=== PATIENT | female | born 1995 | race African-American/Black ===

== ENCOUNTER 2020-06-11 03:53 | Inpatient (IN) | payer OTHER ==
[2020-06-11 04:25] VITALS: BMI 38.5
[2020-06-11] MEDS ORDERED: NS / Oxytocin 40 units/1000ml 1,000 ML IV PRN (04:56)
[2020-06-11] MEDS ORDERED: Lidocaine 1% (PF) 30 ML VIAL SC PRN (04:56)
[2020-06-11] MEDS ORDERED: hydrALAZINE 20 MG/ML VIAL SLOW IVP PRN (04:56)
[2020-06-11] MEDS ORDERED: HYDROcodone/Acetaminophen 5/325 mg Tablet PO PRN (04:56)
[2020-06-11] MEDS ORDERED: Butorphanol Tartrate 1 MG/ML VIAL SLOW IVP PRN (04:56)
[2020-06-11] MEDS ORDERED: Ondansetron PF 4 MG/2 ML Vial IVP PRN ×2 (04:56→21:31)
[2020-06-11] MEDS ORDERED: Ibuprofen 800 MG TAB PO PRN (04:56)
[2020-06-11] MEDS ORDERED: Lactated Ringer's 1,000 ML IV SCH (05:00)
[2020-06-11 06:34] LABS: HBSAg Index 0.17 S/CO (0-0.99); Hep B Surf Ag Non-Reactive S/CO (NonReactive); Syphilis Antibody Nonreactive (Nonreactive); Syphilis Antibody Index 0.06 S/CO (<1.00 Non-Reactive)
[2020-06-11 06:47] LABS: Hemoglobin 11.3 g/dL (12.0-16.0); Mean Corpuscular HGB CONC 33.7 g/dL (32.0-36.0); Mean Corpuscular Hemoglobin 28.3 pg (27.0-31.0); Mean Platelet Volume 8.9 fL (7.4-10.4); Platelet Count 167 thou/uL (130-400); RBC Distribution Width 12.1 % (11.5-14.5); Red Blood Cell (RBC) Count 3.99 mill/uL (4.20-5.40); White Blood Cell (WBC) Count 7.8 thou/uL (4.8-10.8)
[2020-06-11] MEDS ORDERED: Bupivacaine 0.25% HCL 30 ML VIAL ONE (08:52)
--- NOTE | 2020-06-11 10:36 | PDOC.LDHP ---
Labor and Delivery H&P Chief complaint: loss of fluid HPI: 24yo at 38w2d by LMP here for LOF at 0330 this am, clear fluids, painful ctx q 6min Current gestational age (weeks): 38 Due date: 06/23/20 Dating criteria: last menstrual period Grav: 1 Para: 0 Current complications: none Abnormal US findings: No Current medications: pre- vitamins Previous surgical history: none Allergies/Adverse Reactions: Allergies Allergy/AdvReac Type Severity Reaction Status Date / Time No Known Allergies Allergy Verified 06/11/20 04:19 Social history: none - Physical Exam Vital signs reviewed and normal: yes General: NAD Heart: RRR Lungs: CTAB Abdomen: gravid Extremeties: no edema FHT: category 1 - Vaginal Exam cm dilated: 2 Effacement: 50% Station: -2 - OB Labs Blood type: O RH: positive Antibody Screen: negative HIV: negative RPR: negative HEPSAg: negative 1 hour GCT: positive 3 hour GTT: neg 3hr GTT GBS: negative Urine drug screen: negative Rubella: immune - Assessment L&D Assessment: term rupture in membranes - Plan Plan: admit to L&D, labor augmentation if indicated, informed consent obtained -: pt desires low intervention, disc if no significant progress within 12h of ROM will do ripening and or augmentation. Pt agrees.
--- NOTE | 2020-06-11 15:37 | PDOC.LDPN ---
Labor & Delivery Progress Note - Subjective Subjective: painful contractions - Objective Vital signs reviewed and normal: yes General: NAD, breathing through contractions Uterine fundus: non tender Dilation: 3 Effacement: 90% Station: -2 FHT: category 1 [place] contractions every: 3-6min Plan: pitocin for augmentation
[2020-06-11] MEDS ORDERED: NS w/ Oxytocin 10 units 500 ML ONE (15:39)
[2020-06-11] MEDS ORDERED: NS w/ Oxytocin 10 units 500 ML IV SCH (15:45)
[2020-06-11 16:15] LABS: SARS-CoV-2 MS2 Positive; SARS-CoV-2 N Gene Negative; SARS-CoV-2 S Gene Negative; SARS-CoV-2 by NAA Not Detected (NotDetected); SARS-CoV-2 orf1ab Negative
[2020-06-11] MEDS ORDERED: Fentanyl 4 mcg/Bup 0.1% Cadd 100 ML ONE (20:53)
[2020-06-11] MEDS ORDERED: EPHEDRINE 25 MG/5 ML SYRINGE SLOW IVP PRN (21:31)
[2020-06-11] MEDS ORDERED: Lactated Ringer's 500 ML IV PRN (21:31)
[2020-06-11] MEDS ORDERED: Promethazine HCl 25 MG/ML VIAL IM PRN (21:31)
[2020-06-11] MEDS ORDERED: Naloxone HCl 0.4 mg/ml Vial IVP PRN ×2 (21:31)
[2020-06-11] MEDS ORDERED: diphenhydrAMINE 50 MG/ML VIAL IVP PRN (21:31)
[2020-06-11] MEDS ORDERED: Acetaminophen 325 MG TAB PO PRN (21:31)
[2020-06-11] MEDS: Lactated Ringer's 1,000 ML IV SCH ×2 (21:38→23:16)
[2020-06-11] MEDS ORDERED: Fentanyl 4 mcg/Bupivacaine 0.1% Cassette 100 ML EPIDURAL SCH (21:45)
[2020-06-11] MEDS ORDERED: Communication Order-Pharmacy FS SCH (21:45)
[2020-06-12] MEDS ORDERED: Fentanyl 4 mcg/Bup 0.1% Cadd 100 ML ONE (03:02)
[2020-06-12] MEDS: Lactated Ringer's 1,000 ML IV SCH (06:11)
[2020-06-12] MEDS ORDERED: Famotidine/PF 20 mg/2ml Vial ONE (06:54)
[2020-06-12] MEDS ORDERED: Oxytocin 10 UNITS/ML VIAL ONE ×2 (07:03→07:59)
[2020-06-12] MEDS ORDERED: Azithromycin 500 MG VIAL ONE (07:03)
--- NOTE | 2020-06-12 07:18 | PDOC.LDPN ---
Labor & Delivery Progress Note - Subjective Subjective: painful contractions (epidural not working) - Objective Vital signs reviewed and normal: yes General: NAD Uterine fundus: non tender Dilation: 5 Effacement: 90% Station: -2 FHT: category 1 [place] contractions every: 6min -: Patient has been ruptured over 24hr, has not progressed into active labor despite adequate uterine contractions. Dispo for primary CS due to arrest of dilation at 5cm. Pt desires to proceed. All questions answered.
--- NOTE | 2020-06-12 07:22 | PDOC.OPDEL ---
OB Operative/Delivery Note Delivery Dr/Surgeon: Camila Assist: Keanu, PGY3 Pre-Delivery Diagnosis: arrest of dilation Procedure/Post Delivery Dx: primary low transverse CS Weeks gestation: 38 Anesthesia: spinal - Additional Findings/Plan Placenta delivered: spontaneous findings: low transverse hysterotomy without extension, normal uterus, normal tubes, normal ovaries Post delivery plan: routine recovery
[2020-06-12] MEDS ORDERED: Azithromycin 500 MG in Sodium Chloride 0.9% 250 ML 250 ML IVPB SCH (07:30)
[2020-06-12] MEDS ORDERED: CEFAZOLIN 2 GM in Premix Bag 1 BAG IVPB SCH (07:30)
[2020-06-12] MEDS ORDERED: Bicitra 30 ML UDCUP PO SCH (07:30)
[2020-06-12] MEDS ORDERED: Promethazine HCl 25 MG SUPP PR PRN (08:18)
[2020-06-12] MEDS ORDERED: L&D-Morphine 4 MG/ML VIAL SLOW IVP PRN (08:18)
[2020-06-12] MEDS ORDERED: Promethazine HCl 25 MG/ML VIAL IM PRN ×2 (08:18→10:21)
[2020-06-12] MEDS ORDERED: Ondansetron HCl/PF 4 MG/2 ML Vial IVP PRN (08:18)
[2020-06-12] MEDS ORDERED: Naloxone HCl 0.4 mg/ml Vial IV PRN (08:18)
[2020-06-12] MEDS ORDERED: Naloxone HCl 0.4 mg/ml Vial IVP PRN ×2 (08:18)
[2020-06-12] MEDS ORDERED: Meperidine HCl/PF 25 MG/ML VIAL SLOW IVP PRN (08:18)
[2020-06-12] MEDS ORDERED: diphenhydrAMINE 50 MG/ML VIAL IVP PRN (08:18)
[2020-06-12] MEDS ORDERED: Ondansetron PF 4 MG/2 ML Vial IVP PRN ×2 (08:18→10:21)
[2020-06-12] MEDS ORDERED: HYDROmorphone 2 MG/ML VIAL SLOW IVP PRN (08:18)
[2020-06-12] MEDS ORDERED: Communication Order-Pharmacy FS SCH (08:30)
[2020-06-12] MEDS ORDERED: Meperidine HCl/PF 25 MG/ML VIAL ONE (10:18)
[2020-06-12] MEDS ORDERED: Bisacodyl 10 MG SUPP PR PRN (10:21)
[2020-06-12] MEDS ORDERED: HYDROcodone/Acetaminophen 5/325 mg Tablet PO PRN (10:21)
[2020-06-12] MEDS ORDERED: hydrALAZINE 20 MG/ML VIAL SLOW IVP PRN (10:21)
[2020-06-12] MEDS ORDERED: diphenhydrAMINE 25 MG CAP PO PRN (10:21)
[2020-06-12] MEDS ORDERED: Acetaminophen 325 MG TAB PO PRN (10:21)
[2020-06-12] MEDS ORDERED: Lanolin Ointment 7 GM TUBE TOP PRN (10:21)
[2020-06-12] MEDS ORDERED: Zolpidem Tartrate 5 MG TAB PO PRN (10:21)
[2020-06-12] MEDS ORDERED: Simethicone Chewable 80 MG TAB PO PRN (10:21)
[2020-06-12] MEDS ORDERED: Adacel (T-DAP) 0.5 ML SYRINGE IM ONE (10:21)
[2020-06-12] MEDS ORDERED: Docusate Calcium (SURFAK) 240 MG CAP PO SCH (11:15)
[2020-06-12] MEDS ORDERED: Prenatal Vitamin 1 TAB PO SCH (11:15)
[2020-06-12] MEDS ORDERED: Ferrous Sulfate 325 MG TAB PO SCH (11:15)
[2020-06-12] MEDS: Ibuprofen 800 MG TAB PO SCH ×2 (14:46→21:32)
[2020-06-12] MEDS: Ketorolac Tromethamine 30 MG/ML VIAL IVP PRN ×2 (15:47→23:46)
[2020-06-12] MEDS ORDERED: Ketorolac Tromethamine 30 MG/ML VIAL IVP PRN ×2 (16:00)
[2020-06-12] MEDS: Ferrous Sulfate 325 MG TAB PO SCH (19:30)
[2020-06-12] MEDS: Docusate Calcium (SURFAK) 240 MG CAP PO SCH (21:34)
[2020-06-13] MEDS: HYDROcodone/Acetaminophen 5/325 mg Tablet PO PRN ×2 (04:50→14:49)
[2020-06-13] MEDS: Ibuprofen 800 MG TAB PO SCH ×4 (05:33→21:53)
[2020-06-13 06:15] LABS: Hemoglobin 10.7 g/dL (12.0-16.0); Mean Corpuscular HGB CONC 33.5 g/dL (32.0-36.0); Mean Corpuscular Hemoglobin 28.3 pg (27.0-31.0); Mean Corpuscular Volume 84.4 fL (78.0-98.0); Mean Platelet Volume 9.1 fL (7.4-10.4); Platelet Count 157 thou/uL (130-400); RBC Distribution Width 12.5 % (11.5-14.5); Red Blood Cell (RBC) Count 3.78 mill/uL (4.20-5.40); White Blood Cell (WBC) Count 14.3 thou/uL (4.8-10.8)
--- NOTE | 2020-06-13 08:05 | PDOC.PP ---
Post Progress Note Post Day #: 1 PO intake tolerated: yes Flatus: yes Ambulation: yes Vital Signs (12 hours) Temp Pulse Resp BP 06/13/20 05:17 98.3 F 86 16 115/80 06/13/20 00:30 98.0 F 83 16 120/73 06/12/20 20:17 98.3 F 83 16 123/71 Weight Weight 204 lb - Physical Examination General: NAD Respiratory: non-labored breathing Abdominal: no distention, appropriately TTP Fundus firm & at: umb Extremities: negative homans (B) Skin: CS incision dry & intact Neurological: no gross focal deficits Psychiatric: normal affect Result Diagrams: 06/13/20 05:59 Additional Labs: Post Labs Hep Bs Antigen Non-Reactive S/CO (NonReactive) 06/11/20 05:41 Blood Type O NEGATIVE 06/11/20 05:55 - Assessment/Plan POD1 s/p PCS for FTP VSSAF Doing well, routine postop advances Hgb 10.7, postop anemia due to surgical blood loss, asx, cont PNV Rh pos RImm Cont postop care.
[2020-06-13] MEDS: Prenatal Vitamin 1 TAB PO SCH (08:33)
[2020-06-13] MEDS: Docusate Calcium (SURFAK) 240 MG CAP PO SCH ×2 (08:33→21:54)
[2020-06-13] MEDS: Ferrous Sulfate 325 MG TAB PO SCH ×2 (08:40→23:24)
[2020-06-14] MEDS: Ibuprofen 800 MG TAB PO SCH ×2 (05:51→14:04)
[2020-06-14 08:04] VITALS: BP 138/85; TEMP 98.8
--- NOTE | 2020-06-14 09:21 | PDOC.PP ---
Post Progress Note Post Day #: 2 Vital Signs (12 hours) Temp Pulse Resp BP Pulse Ox 06/14/20 08:10 99 06/14/20 08:03 98.8 F 100 20 138/85 99 06/14/20 05:45 98.1 F 84 15 128/70 06/14/20 00:25 98.0 F 76 14 115/58 L Weight Weight 204 lb Result Diagrams: 06/13/20 05:59 Additional Labs: Post Labs Hep Bs Antigen Non-Reactive S/CO (NonReactive) 06/11/20 05:41 Blood Type O NEGATIVE 06/11/20 05:55
[2020-06-14] MEDS: Ferrous Sulfate 325 MG TAB PO SCH (09:37)
[2020-06-14] MEDS: Prenatal Vitamin 1 TAB PO SCH (09:37)
[2020-06-14] MEDS: Docusate Calcium (SURFAK) 240 MG CAP PO SCH (09:38)
== END 2020-06-14 14:50 | disposition home or self-care (01) | DRG 787 ==
LOC: L&D/OP 03:53 → L&D-LIB 04:56 → L&D 15:53 → 3SW 06-12 11:17
PROVIDERS: ADMIT Student in an Organized Health Care Education/Training Program; ATTEND Student in an Organized Health Care Education/Training Program
PROC: 10D00Z1 Extraction of Products of Conception, Low, Open Approach (ICD-10-PCS; principal; 2020-06-12)
PROC: 3E0334Z Introduction of Serum, Toxoid and Vaccine into Peripheral Vein, Percutaneous Approach (ICD-10-PCS; 2020-06-12)
DX: O62.0 Primary inadequate contractions (principal); D62 Acute posthemorrhagic anemia; Z3A.38 38 weeks gestation of pregnancy; Z37.0 Single live birth; Z67.41 Type O blood, Rh negative; O26.893 Other specified pregnancy related conditions, third trimester; Z20.828 Contact with and (suspected) exposure to other viral communicable diseases; O90.81 Anemia of the puerperium
CPT/HCPCS: 36415; 51702; 76815; 85027; 85461; 86780; 86850; 86900; 86901; 87340; 87635; 90384; 96372; 99285; J1885; J2175; J2270; J2405; J2590; S0020; S0028; U0003

== ENCOUNTER 2020-07-07 15:31 | Emergency (ER) | payer OTHER ==
[2020-07-07 22:54] LABS: SARS-CoV-2 MS2 Positive; SARS-CoV-2 N Gene Positive; SARS-CoV-2 S Gene Positive; SARS-CoV-2 by NAA DETECTED (NotDetected); SARS-CoV-2 orf1ab Positive
== END 2020-07-07 16:02 | disposition home or self-care (01) ==
LOC: ERS 15:31
DX: U07.1 COVID-19 (principal)
CPT/HCPCS: 87635; 99283; U0003

== ENCOUNTER 2021-07-21 11:48 | Emergency (ER) | payer OTHER ==
[2021-07-21] MEDS ORDERED: Dexamethasone 4 MG TAB ONE (13:56)
== END 2021-07-21 14:15 | disposition home or self-care (01) ==
LOC: ERS 11:48
DX: J20.9 Acute bronchitis, unspecified (principal)
CPT/HCPCS: 99283; J8540

== ENCOUNTER 2022-06-07 12:15 | Emergency (ER) | payer OTHER ==
[2022-06-07] MEDS ORDERED: predniSONE 20 MG TAB ONE (12:49)
[2022-06-07 13:38] LABS: SARS-CoV-2 NAA Rapid Test Not Detected (NotDetected)
== END 2022-06-07 14:23 | disposition home or self-care (01) ==
LOC: ERS 12:15
DX: J20.9 Acute bronchitis, unspecified (principal); F17.210 Nicotine dependence, cigarettes, uncomplicated; Z20.822 Contact with and (suspected) exposure to COVID-19
CPT/HCPCS: 71045; 93005; 94640; J7512; J7620

== ENCOUNTER 2023-08-12 12:04 | Emergency (ER) | payer OTHER ==
[2023-08-12 12:52] LABS: SARS-CoV-2 NAA Rapid Test Not Detected (NotDetected)
== END 2023-08-12 13:57 | disposition home or self-care (01) ==
LOC: ERS 12:04
DX: J11.1 Influenza due to unidentified influenza virus with other respiratory manifestations (principal)
CPT/HCPCS: 99283

== ENCOUNTER 2025-04-03 11:40 | Emergency (ER) | payer OTHER, SELFPAY ==
[2025-04-03] MEDS ORDERED: Benzonatate 100 MG CAP ONE (13:50)
[2025-04-03] MEDS ORDERED: Dexamethasone 10 MG/ML VIAL ONE (14:25)
== END 2025-04-03 14:30 | disposition home or self-care (01) ==
LOC: ERS 11:40
DX: U07.1 COVID-19 (principal); J06.9 Acute upper respiratory infection, unspecified
CPT/HCPCS: 87081; 87426; 87430; 99283; J1100